=== PATIENT | male | born 1930 | race Two or more races ===

== ENCOUNTER 2017-09-16 16:51 | Inpatient (IN) | payer MEDICARE, OTHER ==
[~2017-09-16] VITALS: Ht 162.6 cm; Wt 72.3 kg
[2017-09-16 17:15] VITALS: BP 111/68
[2017-09-16 17:56] VITALS: BP 111/68
--- NOTE | 2017-09-16 18:03 | Diagnostic Imaging Report ---
PROCEDURE: CHEST SINGLE (PORTABLE) COMPARISON: None. INDICATIONS: FALL FINDINGS: LUNGS: No mass or infiltrate. There is trace bibasilar atelectasis. Pulmonary vasculature is normal. PLEURA: No effusions or pneumothorax. HEART \T\ MEDIASTINUM: The heart is top normal in size. The aorta is ectatic. BONES \T\ SOFT TISSUES: No focal osseous lesions. Soft tissues unremarkable. CONCLUSION: No acute cardiopulmonary process. Dictated by: Jose Juan Penaloza M.D. on 09/16/2017 at 18:04 Electronically approved by: Jose Juan Penaloza M.D. on 09/16/2017 at 18:04
[2017-09-16] MEDS ORDERED: HYDROMORPHONE 1MG/1ML INJ IV PRN (18:15)
[2017-09-16 20:00] VITALS: BP 126/76
[2017-09-16] MEDS: CEFTRIAXONE SOD 1 GM VIAL IV SCH (20:23)
[2017-09-16] MEDS: SODIUM CHLORIDE 0.9% 1000ML 1,000 ML IV SCH (20:23)
--- NOTE | 2017-09-16 20:28 | Diagnostic Imaging Report ---
EXAMINATION: Head CT without contrast. HISTORY:Fall, rule out possible CVA. COMPARISON:None. TECHNIQUE: Multidetector axial images were obtained from the foramen magnum to the vertex without contrast. The images were reconstructed using brain and bone algorithms. Thin section brain images were reformatted into coronal and sagittal planes. Intravenous contrast: None IMAGE QUALITY: Suboptimal evaluation due to motion artifacts. FINDINGS: Skull/scalp: No abnormality. Parenchyma: Nonspecific bilateral frontoparietal patchy and confluent white matter hypodensity are likely related to small vessel ischemic changes. No acute hemorrhage, mass or acute major vascular territorial infarct. Arteries: Atherosclerotic calcification in bilateral carotid siphon and V4 segment of left vertebral artery. Dural sinuses: No abnormal density suggestive of thrombosis. Ventricles: Moderate compensated dilatation due to volume loss. Extra-axial spaces: Prominent predominantly bifrontal extra-axial spaces related to cerebral volume loss. Brain volume: Generalized age-related cerebral volume loss, with predominant involvement of bilateral (right more than left) anteromedial temporal lobe. Craniocervical junction: No mass, Chiari malformation, or basilar invagination. Sella: No mass. Paranasal/mastoid sinuses: Imaged portions unremarkable. IMPRESSION: 1. No acute intracranial abnormality, particularly no acute hemorrhage, mass or acute major vascular territorial infarct. 2. Mild to moderate supratentorial white matter microvascular ischemic changes. 3. Generalized age-related cerebral volume loss, with predominant involvement of bilateral anteromedial aspect of the temporal lobes which can be seen in Alzheimer's disease in appropriate clinical setting. Signed by: Dr. Danitza Neri M.D. on 09/16/2017 8:21 PM
--- NOTE | 2017-09-16 20:34 | Diagnostic Imaging Report ---
History: Fall. Comparison studies: None Technique: Axial images were obtained through the cervical region.. Coronal and sagittal images reconstructed from the axial data.. Intravenous contrast: None Suboptimal evaluation due to motion artifacts particularly at level C5 and C6. Findings: Fractures: Suboptimal evaluation at C5-C6 due to motion artifacts. Despite the limitation no grossly displaced acute fracture. Soft tissue injuries: None. Atlantoaxial articulation: Intact. Alignment: Reversal of normal cervical lordosis is either positional or due to muscle spasm. No scoliosis. Cervicomedullary junction: No abnormalities. The foramen magnum is patent. Soft tissues: No abnormalities. Vertebrae: No fractures, infection or neoplasm. Degenerative changes: C3-C4: Posterior disc osteophyte complex results in mild canal stenosis. Moderate left foraminal stenosis due to facet and uncovertebral arthrosis. Mild degenerative disc disease. C4-C5: Severe degenerative disc disease with near complete loss of intervertebral disc space, endplate sclerosis and anterior vertebral osteophyte. Posterior disc osteophyte complex and ossification of posterior longitudinal ligament results in moderate to severe canal stenosis. Bilateral mild foraminal stenosis due to facet and uncovertebral arthrosis. C5-C6: Severe degenerative disc disease with near complete loss of intervertebral disc space, endplate sclerosis and anterior vertebral osteophyte. Posterior disc osteophyte complex results in severe canal stenosis. Severe bilateral foraminal stenosis due to facet and uncovertebral arthrosis. C6-C7: Severe degenerative disc disease with near complete loss of intervertebral disc space, endplate sclerosis and anterior vertebral osteophyte. Mild decrease in vertebral body height of C6. Posterior disc osteophyte complex results in moderate canal stenosis. Mild right and severe left foraminal stenosis due to facet and uncovertebral arthrosis. C7-T1: Posterior disc osteophyte complex and ossification of posterior longitudinal ligament results in mild canal stenosis. Moderate right and severe left foraminal stenosis due to facet and uncovertebral arthrosis. IMPRESSION: 1. Suboptimal evaluation due to motion artifact particularly at level C5-C6, despite the limitation no grossly displaced acute fracture. Reversal of normal cervical lordosis is likely due to degenerative changes or secondary to muscle spasm. 2. Ligament, spinal cord and or vascular abnormalities cannot be excluded on the basis of this examination. 3. Advanced cervical spondylosis as detailed above. Signed by: Dr. Danitza Neri M.D. on 09/16/2017 8:30 PM
--- NOTE | 2017-09-16 20:50 | Diagnostic Imaging Report ---
History: Fall. Comparison studies: None Technique: Axial images were obtained through the lumbar spine from T12-S1. Coronal and sagittal images reconstructed from the axial data. Intravenous contrast: None Findings: There are 6 nonrib-bearing lumbar type vertebral bodies, however for counting purposes the first nonrib-bearing vertebral body is considered as T12. Alignment: Mild straightening of normal lumbar lordosis may be positional or due to muscle spasm. Dextroscoliosis of the lumbar spine. Soft tissues: Atherosclerotic calcification in the abdominal aorta and its branches. Paraspinal muscles: Fatty atrophy of bilateral posterior paraspinal muscles at level S1. Sacroiliac joints: Mild degenerative changes in bilateral sacroiliac joint. Vertebrae: Age indeterminate, possible chronic superior endplate compression and anterior wedging deformity of T12 vertebral body with approximately 40% loss of vertebral body height. No retropulsion of fracture fragment into the canal. Degenerative changes: T11-T12: Mild degenerative disc disease with vacuum phenomenon. Posterior disc osteophyte complex results in mild canal stenosis. T12-L1: Mild degenerative disc disease with vacuum phenomenon. L1-L2: L1-L2: Moderate degenerative disc disease with a large bridging anterior vertebral osteophyte. Disc bulge asymmetric to the left without significant canal stenosis. Mild left foraminal stenosis. L2-L3: Moderate degenerative disc disease with near complete loss of intervertebral disc space, endplate sclerosis, anterior vertebral osteophyte and vacuum phenomena and. Small subchondral cyst beneath the superior endplate of L3. Disc bulge asymmetric to the left with superimposed 3 mm left foraminal disc protrusion results in moderate left foraminal stenosis. Mild right foraminal stenosis. No spinal canal stenosis. L3-L4: Mild degenerative disc disease. Disc bulge asymmetric to the left in combination with thickened ligamentum flavum and facet arthrosis results in mild canal stenosis. Moderate right and severe left foraminal stenosis. Bilateral moderate facet arthrosis. L4-L5: Mild degenerative disc disease with vacuum phenomena and. Disc bulge without canal stenosis. Moderate right and mild left foraminal stenosis. Bilateral mild facet arthrosis. L5-S1: Disc bulge asymmetric to the right without canal stenosis. Moderate right and mild left foraminal stenosis. Bilateral moderate facet arthrosis. IMPRESSION: 1. Age indeterminate, possible chronic superior endplate compression and anterior wedging deformity of T12. 2. Mild straightening of lumbar lordosis may be positional or due to muscle spasm. Dextro scoliosis of lumbar spine. 3. Lumbar spondylosis as detailed above. 4. Ligament, spinal cord and or vascular abnormalities cannot be excluded on the basis of this examination. Signed by: Dr. Danitza Neri M.D. on 09/16/2017 8:47 PM
[2017-09-16 21:49] LABS: BASOPHILS % 0.4 % (0.0-1.0); EOSINOPHILS % 0.2 % (0.0-6.0); HEMATOCRIT 37.3 % (38.2-49.6); HEMOGLOBIN 13.1 g/dL (14.0-18.0); LYMPHOCYTES % 21.6 % (18.0-39.1); MEAN CORPUSCULAR HEMOGLOBIN 33.1 pg (28-32); MEAN CORPUSCULAR HGB CONC 35.1 g/dL (31-35); MEAN CORPUSCULAR VOLUME 94.2 fL (81-99); MONOCYTES # (AUTO) 0.6 (0.2-0.8); MONOCYTES % 12.3 % (4.4-11.3); NEUTROPHILS # (AUTO) 3.1 (2.1-6.9); NEUTROPHILS % 64.9 % (38.7-80.0); PLATELET COUNT 107 x10e3/uL (140-360); RED BLOOD COUNT 3.96 x10e6/uL (4.3-5.7); RED CELL DISTRIBUTION WIDTH 12.6 % (11.7-14.4)
[2017-09-16] MEDS: GUAIFENESIN 600MG/DEXTROMETHORPHAN 30MG TABSR PO SCH (21:50)
[2017-09-16] MEDS: ACETAMINOPHEN 325 MG TAB PO PRN (22:06)
[2017-09-16 22:08] LABS: INR 1.11; PROTHROMBIN TIME 13.5 seconds (11.9-14.5)
[2017-09-16 22:23] LABS: ALBUMIN 3.4 g/dL (3.5-5.0); ALBUMIN/GLOBULIN RATIO 0.9 (0.8-2.0); ANION GAP 14.9 mmol/L (8-16); CALCIUM 8.9 mg/dL (8.4-10.2); CHOL/HDL RATIO 3.3 (3.9-4.7); CREATININE, SERUM 1.25 mg/dL (0.72-1.25); POTASSIUM 3.9 mmol/L (3.5-5.1)
[2017-09-16 22:29] LABS: THYROID STIMULATING HORMONE 1.765 uIU/mL (0.350-4.940)
[2017-09-17] VITALS (8 sets, daily range): BP systolic 92–148; BP diastolic 54–78
[2017-09-17] MEDS: SODIUM CHLORIDE 0.9% 1000ML 1,000 ML IV SCH ×2 (04:38→14:15)
[2017-09-17] MEDS: GUAIFENESIN 600MG/DEXTROMETHORPHAN 30MG TABSR PO SCH ×2 (09:12→17:37)
[2017-09-17] MEDS: ASPIRIN 81 MG ENTERIC COATED PO SCH (09:12)
--- NOTE | 2017-09-17 10:33 | History and Physical ---
HISTORY OF PRESENT ILLNESS: He is an 87-year-old male patient who has Alzheimer dementia, COPD, and old history of vertebral compression fracture. He presented to my office yesterday as the son had brought him in. The patient was in his usual state of health, which is dementia; but 2 days prior on Thursday, the patient had a fall at home. The patient's son had found him by his room. The patient was lying on the floor face down. Then after that fall, the patient developed new incontinence. The patient had incontinence history in the past, but now he is having a continuous problem with incontinence. The patient had recurrent falls. The patient developed profound weakness related to multiple falls. The patient has advanced dementia, so the patient himself is not able to give any meaningful history. The patient is having recurrent pains. REVIEW OF SYSTEMS: Not able to obtain review of systems examination. MEDICATIONS: The patient was just taking Tylenol at home. The patient was not taking any other medications. PAST MEDICAL HISTORY: The patient has a history of BPH, generalized arthritis, depression, insomnia, and Alzheimer disease. PAST SURGICAL HISTORY: No surgical history. SOCIAL HISTORY: Denies smoking. Denies using alcohol. The patient has used alcohol in the past. ALLERGIES: NO KNOWN DRUG ALLERGIES. PHYSICAL EXAMINATION GENERAL: He is an elderly male patient lying in bed, not in any acute distress. VITAL SIGNS: Temperature 97.4, pulse rate 76, blood pressure 92/58, respirations 20. O2 sat is 96%. HEENT: Normocephalic, atraumatic. NECK: No JVD. LUNGS: Bilateral equal air entry. No rales. No rhonchi. HEART: S1 and S2 regular. Systolic murmur is present. ABDOMEN: Soft. Bowel sounds are present. NEUROLOGIC: Nonfocal. No neurological deficit. The patient has generalized muscle weakness and generalized tenderness. LABORATORY EXAMINATION: The patient has a very high CK. Urine does not . On other laboratory examination, the creatinine is elevated at 1.25. His liver tests are elevated. LFTs are high. IMAGING: The patient had a brain CT which showed generalized atrophy most prominent at the lateral and anteromedial aspect of the temporal lobe and Alzheimer's and some microvascular ischemic changes but no new stroke. The patient had a CT scan of the spine which was negative for any acute fracture. There was some motion artifact. In the lumbar spine, the patient had old spinal fracture, possibly old in the T12 vertebral body. The patient has multiple degenerative disk disease with no sign of compression. Chest x-ray was negative. ADMISSION IMPRESSION AND DIAGNOSES 1. Recurrent falls and worsening incontinence, suspected cerebrovascular accident. 2. Severe rhabdomyolysis with acute renal failure and profound muscle weakness and recurrent falls. PLAN: Will admit the patient with the above diagnoses. Obtain urine and urine C and S. Will consult neurology and PM and R. Will start the patient on physical therapy and occupational therapy and mobilize the patient. Give IV fluids and IV antibiotics. Job#: [id number]
--- NOTE | 2017-09-17 17:33 | Consultation ---
DATE OF CONSULTATION: September 17, 2017, at 3:30 in the evening. NEUROLOGICAL CONSULTATION A patient of Dr. Jose Bee. REASON FOR CONSULTATION: Altered mental status. HISTORY OF PRESENT ILLNESS: This is an 87-year-old male, apparently has history of dementia, in the last several days has been more confused, more disoriented, has multiple falls and generalized weakness and incontinence, reason for which he was brought to the hospital for further evaluation and management. He has also history of COPD. PAST HISTORY: Dementia, depression, benign prostatic hypertrophy, generalized weakness. LIST OF MEDICATIONS: The only medication he was taking is Tylenol. ALLERGIES: NONE KNOWN. At the time of this examination, he denies any headaches or limb pain. He is partially oriented in time. He said we are in 2018 but does not know the day of the week. He is guessing about the month. He knows he is in the hospital but he does not know the name of the hospital. SOCIAL HISTORY: He does not smoke or drink. GENERAL PHYSICAL EXAMINATION GENERAL: A well-developed individual who is lying down in bed. Apparently has been restless because he has been pulling the IVs. At the time of this examination, he is calm. VITAL SIGNS: Blood pressure 118/58, pulse 72, temperature 97.6. LUNGS: Clear to auscultation. HEART: Regular sinus rhythm. No murmur. ABDOMEN: Soft. No tenderness. No organomegaly. MUSCULOSKELETAL/LOWER EXTREMITIES: No edema, no cyanosis, no clubbing. NEUROLOGIC Mental status: He is awake, alert. As I mentioned, he is partially oriented in time. He knows that he is in the hospital but he does not know the name. When I ask him if he has any headaches or dizziness, he denies any headaches, no dizziness, no focal paresthesias, no focal weakness. He seems to be hallucinating a little bit, seeing things in the wall. Speech clear, no dysarthria or dysphagia. Cranial nerves: Pupils were both equal and reactive. External ocular movements were full. There was no nystagmus. Visual field on confrontation was grossly normal. There is no evidence of facial asymmetry. Tongue protrudes midline. Motor power: Patient is moving all 4 extremities symmetrically without any focal weakness. Plantar stimulation is down bilaterally. HEAD: Normocephalic. NECK: Supple. Carotid pulsations were present bilaterally. There were no bruits. GAIT: Was deferred. The patient has been with Physical Therapy. They were able to make him walk a little bit. No family present here to give more information. LABORATORY WORKUP: Liver enzymes are: AST is 198, quite elevated. ALT 87, also elevated. is elevated at 5245, probably related to being in the floor for a long time after falling. CT scan of the head shows no acute pathology, no evidence of acute infarction, neither evidence of a hemorrhage. There is extensive small white matter disease small-vessel disease. There is atrophy of the temporal lobes compatible with Alzheimer's. CAT scan of the cervical spine and the lumbar spine also showed no acute pathology. He has extensive degenerative changes in the lumbar and the cervical spine. IMPRESSION 1. Dementia, Alzheimer's disease type by history. 2. Multiple falls, unspecified. 3. Rhabdomyolysis. 4. No evidence of focal neuro deficit at the present time. RECOMMENDATION 1. Continue with physical therapy. 2. Psychiatry consult. Will follow. Job#: [id number] EV
--- NOTE | 2017-09-17 17:52 | Consultation ---
DATE OF CONSULTATION: September 17, 2017 REASON FOR CONSULTATION: 1. Falls. 2. Rhabdomyolysis. 3. Alzheimer's dementia. 4. Arthritis. 5. Depression. 6. Insomnia. HISTORY: The patient is an 87-year-old [place] male who has history of Alzheimer disease, history of COPD, old compression fractures who came into the hospital because of having some falls at home. The patient was found lying down. Had developed some incontinence. He came to the hospital and underwent workup. He had a CT scan of the brain which showed no acute intracranial abnormalities, no acute hemorrhage, mass or acute major vascular territorial infarction, mild to moderate supratentorial white matter, microvascular ischemic changes. Had a cervical spine CT which showed suboptimal examination due to motion, but no grossly displaced acute fracture, cervical spondylosis. Had a chest x-ray done which showed no acute cardiopulmonary process and had lumbar CT which showed age indeterminate possible chronic superior endplate compression fracture and wedging at T12, non-straightening of lumbar lordosis may be positional or due to muscular spasm. Lumbar spondylosis noted. He was also found to have rhabdomyolysis. I am being asked to evaluate for rehab needs. PAST MEDICAL HISTORY: BPH, COPD, generalized arthritis, depression, insomnia, Alzheimer's dementia. PAST SURGICAL HISTORY: None. HABITS: Nonsmoker, nondrinker. ALLERGIES: NO KNOWN DRUG ALLERGIES. SOCIAL HISTORY: He states that he lives with his son and his [id number] in a 2-story home. 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 He said he was ambulatory, but could not really quantify exactly what he is able to do. FAMILY HISTORY: Denied. REVIEW OF SYSTEMS: Essentially negative except for the above findings. LABORATORY DATA: White cell count 4.8, hemoglobin 13.1, hematocrit 37.3, platelets 107,000, sodium 132, potassium 3.9, BUN 31, creatinine 1.2. CK was 5876, trending on admission. Rehab oreilly, he only walked 20 feet and required minimal assist to get around. His back is a bit sore as well. PHYSICAL EXAMINATION GENERAL: The patient is awake and alert. Earlier he was more alert. He was oriented. He knows Mary Kay is the president. He had some question about what year it was, but after speaking with Dr. Hood he actually knew what year it was earlier today. EYES: Gaze conjugate. ORAL: Tongue is midline. NECK: Supple. HEART: Regular. LUNGS: Fair air entry. ABDOMEN: Nontender, nondistended. EXTREMITIES: He has fairly good movement to the upper extremities and lower extremities; however, I really could not get him to move his legs like a regular person, but he did not complain of pain, and range of motion did not cause exacerbation of pain. BACK: Palpation of the lumbar spine caused some soreness, but nothing major. NEUROLOGIC: Sensory oreilly, he would not tell me if he had any numbness or tingling. MANUAL MUSCLE TESTING: There is 4/5 strength in the upper extremities. On the lower extremities, again, he did not really move his legs much, 4-/5 strength, with range of motion. I could barely get him to wiggle his ankles. IMPRESSION 1. Status post fall with rhabdomyolysis. 2. Dementia. 3. Impaired gait and mobility. 4. Chronic obstructive pulmonary disease. 5. Benign prostatic hypertrophy. PLAN: I see that he is supposed to have telemetry, but he has taken it off. He is only walking about 20 feet with minimal assist. Will have to check with the family to see what his prior level of functioning is, and if he will be going home. I am assuming he will be going home back with his family if we can get him back to a higher functional level. Precautions: Falls. Thank you once again for allowing me to participate in the care of this pleasant patient. Job#: [id number]
[2017-09-17] MEDS: CEFTRIAXONE SOD 1 GM VIAL IV SCH (21:10)
[2017-09-17] MEDS: ACETAMINOPHEN 325 MG TAB PO PRN (21:45)
[2017-09-18] VITALS: BP 110/57
[2017-09-18 00:08] LABS: BILIRUBIN,URINE NEGATIVE (NEGATIVE); KETONES,URINE NEGATIVE (NEGATIVE); LEUKOCYTE ESTERASE ,URINE NEGATIVE (NEGATIVE); NITRITE,URINE NEGATIVE (NEGATIVE); PROTEIN,URINE DIPSTICK NEGATIVE (NEGATIVE); URINE UROBILINOGEN 0.2 mg/dL (0.2 - 1)
[2017-09-18 00:11] LABS: CLARITY,URINE CLEAR (CLEAR); COLOR,URINE YELLOW (YELLOW)
[2017-09-18 00:22] LABS: BACTERIA,URINE FEW /HPF; EPITHELIAL CELLS,URINE RARE /LPF; RBC,URINE 0-5 /HPF (0-5); WBC,URINE (MAN) 0-5 /HPF (0-5)
[2017-09-18] MEDS: SODIUM CHLORIDE 0.9% 1000ML 1,000 ML IV SCH (00:30)
[2017-09-18 07:22] LABS: BASOPHILS % 0.3 % (0.0-1.0); EOSINOPHILS % 0.3 % (0.0-6.0); HEMATOCRIT 33.4 % (38.2-49.6); HEMOGLOBIN 11.6 g/dL (14.0-18.0); LYMPHOCYTES # (AUTO) 0.9 (1.0-3.2); LYMPHOCYTES % 28.4 % (18.0-39.1); MEAN CORPUSCULAR HGB CONC 34.7 g/dL (31-35); MEAN CORPUSCULAR VOLUME 94.9 fL (81-99); MONOCYTES # (AUTO) 0.4 (0.2-0.8); MONOCYTES % 10.6 % (4.4-11.3); NEUTROPHILS % 59.8 % (38.7-80.0); PLATELET COUNT 83 x10e3/uL (140-360); RED BLOOD COUNT 3.52 x10e6/uL (4.3-5.7); RED CELL DISTRIBUTION WIDTH 12.8 % (11.7-14.4)
[2017-09-18 07:47] LABS: ALANINE AMINOTRANSFERASE 91 IU/L (0-55); ALBUMIN 2.8 g/dL (3.5-5.0); ALKALINE PHOSPHATASE 55 IU/L (40-150); ANION GAP 11.9 mmol/L (8-16); BLOOD UREA NITROGEN 17 mg/dL (7-26); BUN/CREATININE RATIO 20 (6-25); CALCIUM 7.9 mg/dL (8.4-10.2); CARBON DIOXIDE 21 mmol/L (22-29); CHLORIDE 101 mmol/L (98-107); CREATININE, SERUM 0.84 mg/dL (0.72-1.25); EST GLOMERULAR FILTRATION RATE > 60 ML/MIN (60-); GLUCOSE 89 mg/dL (74-118); POTASSIUM 3.9 mmol/L (3.5-5.1); SODIUM 130 mmol/L (136-145)
[2017-09-18 08:00] VITALS: BP 95/52
[2017-09-18] MEDS: ASPIRIN 81 MG ENTERIC COATED PO SCH (09:30)
[2017-09-18] MEDS: GUAIFENESIN 600MG/DEXTROMETHORPHAN 30MG TABSR PO SCH (09:30)
[2017-09-18 10:07] VITALS: BP 95/52
[2017-09-18 16:44] VITALS: BP 107/68
--- NOTE | 2017-09-18 17:19 | Diagnostic Imaging Report ---
PROCEDURE:ABDOMINAL ULTRASOUND COMPARISON:None. INDICATIONS:Elevated LFT'S FINDINGS: Liver: 11.7 cm. Increased hepatic parenchymal echogenicity. Nodular hepatic contour. No focal mass. Main portal vein: 0.9 cm. Hepatopetal flow. Gallbladder: No stones, sludge, wall thickening, or pericholecystic fluid. Common Bile Duct: 0.4 cm. No echogenic filling defect. Sonographic Simon's sign: Negative Right kidney: 8.1 cm. No solid or cystic mass, echogenic calculi, or hydronephrosis. Normal parenchymal echogenicity. Left kidney: 8.5 cm. No solid mass, echogenic calculi, or hydronephrosis. 2.9 x 2.6 x 2.9 cm cystic, anechoic partially exophytic lesion in the mid aspect. Increased parenchymal echogenicity. Spleen: 9.1 cm. No focal lesions. Pancreas: The visualized portions of the pancreas are normal. Inferior vena cava: Normal. Aorta: Proximal portion and is unremarkable. Mid and distal portions are not visualized.. Ascites: None. CONCLUSION: 1. Nodular hepatic contour, suggesting cirrhosis. Increased hepatic parenchymal echogenicity, likely reflecting fatty infiltration. No focal lesions. 2. Increased left cortical echogenicity, consistent with medical renal disease. Both kidneys are below normal in size. 3. 2.9 cm left simple renal cyst. Ivan Toussaint M.D. Dictated by: Ivan Toussaint M.D. on 09/18/2017 at 17:19 Electronically approved by: Ivan Toussaint M.D. on 09/18/2017 at 17:19
--- NOTE | 2017-11-12 20:13 | Discharge Summary ---
CHIEF COMPLAINT: CVA, status post fall, and COPD. FINAL DIAGNOSES 1. Rhabdomyolysis. 2. Dementia. 3. Altered mental status. 4. Confusion. 5. Elevated liver studies. DISPOSITION: [facility]. This 87-year-old male, an Alzheimer dementia individual along with COPD and old history of vertebral compression fractures, presented to my office. Had been in his usual state of health with just dementia; but 2 days prior on Thursday, the patient sustained a fall. His son found him by his room. He was lying on the floor face down. Following the fall, the patient developed a new episode of incontinence. He has had this history in the past, but now he is having a continuous problem with this. He has been having recurrent falls and has now developed profound weakness related to multiple falls. He underwent examination in the ER. Studies were conducted. The patient was admitted to the facility for care regarding recurrent falls and worsening incontinence, suspect CVA, severe rhabdomyolysis with acute renal failure, profound muscle weakness and recurrent falls. Will be requesting neurology follow as well as PMR. With admission, regarding neurology issues, Dr. Hood was asked to see the patient in relation to altered mental status. With his evaluation of the patient and existing data, impression was made of dementia, Alzheimer disease type by history, multiple falls unspecified, rhabdomyolysis. No evidence of focal neuro deficit at the present time. He was then being seen by Dr. Torres from a PMR standpoint. Impression by him was made of status post fall, rhabdomyolysis, dementia, impaired gait and mobility. He states he is only walking about 20 feet with minimal assistance. The patient was placed on the med-surg floor. He was on a cardiac diet. He was receiving IV fluids and given aspirin. Started on ceftriaxone 1 g IV q.24. Pain medication was met with hydromorphone 0.5 mg IV q.6. Laboratory studies were showing stable electrolytes. Kidney functions: BUN 31, creatinine 1.25, glucose 118. CBC was stable. Liver studies show a total bilirubin of 1.2, AST 198, ALT 87, alk phos 69. The patient was having issues of being confused. He continued to be maintained on his medications. His BUN improved to 17. Creatinine improved to 0.84. Followup liver enzymes were showing total bilirubin of 1, AST 194, ALT 91, alk phos 55. With assistance of case management, the patient's insurance gave him the green light to be transferred to [facility] for further continuation of rehab strengthening due to the patient's history of falls and his dementia. I will continue to monitor the patient at that facility as his care continues in that location. He will continue on his current MAR. Continue with his current diet. Activity level is under the direction of Dr. Torres. Dictated by: IVAN Babcock BINDU TIM MD Job#: [id number]
== END 2017-09-18 16:40 | DRG 557 ==
LOC: MED/SURG3 16:51
PROVIDERS: ADMIT Internal Medicine; ATTEND Internal Medicine
DX: M62.82 Rhabdomyolysis (principal); G93.49 Other encephalopathy; G30.9 Alzheimer's disease, unspecified; J44.9 Chronic obstructive pulmonary disease, unspecified; F02.80 Dementia in other diseases classified elsewhere, unspecified severity, without behavioral disturbance, psychotic disturbance, mood disturbance, and anxiety; R29.6 Repeated falls; R26.9 Unspecified abnormalities of gait and mobility; F32.9 Major depressive disorder, single episode, unspecified; M47.9 Spondylosis, unspecified; N40.1 Benign prostatic hyperplasia with lower urinary tract symptoms; N39.45 Continuous leakage
CPT/HCPCS: 36415; 70450; 71045; 72125; 72131; 76700; 80053; 80061; 81001; 82550; 84443; 85025; 85610; 85730; 87040; 87086; 97139; J0696; J7030